=== PATIENT | female | born 1990 | race Hispanic/Latino ===

== ENCOUNTER 2018-12-15 06:05 | Day surgery (SDC) | payer BC ==
[2018-12-15 06:51] LABS: Basophils % (Auto) 0.7 % (0.0-1.8); Eosinophils # (Auto) 0.1 K/mm3 (0.0-0.4); Eosinophils % (Auto) 1.2 % (0.0-4.3); Hematocrit 42.3 % (30.3-42.9); Hemoglobin 14.7 gm/dl (10.1-14.3); Lymphocytes # (Auto) 2.2 K/mm3 (1.2-5.4); Lymphocytes % (Auto) 33.5 % (13.4-35.0); Mean Corpuscular HGB Conc 35 % (30-34); Mean Corpuscular Volume 89 fl (79-97); Monocytes # (Auto) 0.5 K/mm3 (0.0-0.8); Monocytes % (Auto) 7.2 % (0.0-7.3); Platelet Count 237 K/mm3 (140-440); Red Blood Count 4.74 M/mm3 (3.65-5.03); Red Cell Distribution Width 12.9 % (13.2-15.2)
[2018-12-15] MEDS ORDERED: NACL 0.9% 500 ML 500 ML IV SCH (07:00)
[2018-12-15 07:03] LABS: BUN/Creatinine Ratio 13; Blood Urea Nitrogen 9 mg/dL (7-17); Calcium 9.1 mg/dL (8.4-10.2); Hemolysis Index 12
[2018-12-15 07:04] LABS: INR 0.88 (0.87-1.13)
[2018-12-15 07:05] LABS: Partial Thromboplastin Time 27.7 Sec. (24.2-36.6)
[2018-12-15] MEDS ORDERED: HEPARIN/NS 5000 UNIT/500ML(CATH LAB) 500 ML IR ONE (08:18)
--- NOTE | 2018-12-15 08:22 | Short Stay Summary ---
Short Stay Documentation Date of service: 12/15/18 - History Principal diagnosis: Venous compression Past Medical History: other (venous hyupertension, BLE swelling and pain) Social history: no significant social history - Allergies and Medications Current Medications: Allergies No Known Allergies Allergy (Unverified 12/15/18 06:05) Home Medications Medication Instructions Recorded Confirmed Last Taken Type ALPRAZolam [Xanax TAB] 0.5 mg PO QHS 12/15/18 12/15/18 12/13/18 History Buspirone HCl [busPIRone] 7.5 mg PO BID 12/15/18 12/15/18 12/13/18 History Active Medications Sodium Chloride (Nacl 0.9% 500 Ml) 500 mls @ 50 mls/hr IV DIRECT MARGOT - Physical exam General appearance: no acute distress Integumentary: no rash, no growths HEENT: Atraumatic Lungs: Normal air movement Breasts: deferred Heart: Regular rate Gastrointestinal: normal Female Genitourinary: deferred Rectal Exam: deferred Extremities: no ischemia Neurological: Normal gait, Normal speech - Brief post op/procedure progress note Date of procedure: 12/15/18 Pre-op diagnosis: venous compression Post-op diagnosis: same Procedure: BLE venogram, IVUS, vwenoplasty and stent placement Anesthesia: local Surgeon: TARA KEENAN Estimated blood loss: minimal Pathology: none Condition: stable - Disposition Condition at discharge: Good Disposition: [id number] TO HOME OR SELFCARE Short Stay Discharge Plan Activity: advance as tolerated Weight Bearing Status: Weight Bear as Tolerated Diet: regular Wound: keep clean and dry, per your surgeon's advice Follow up with: SILAS BLOUNT PA-C [Other] - 7 Days
[2018-12-15] MEDS: SUBLIMAZE ONE ×3 (08:42→09:07)
[2018-12-15] MEDS: VERSED ONE ×2 (08:42→08:46)
[2018-12-15] MEDS: XYLOCAINE 2% INFILTRATI ONE ×2 (08:47→08:49)
[2018-12-15] MEDS ORDERED: TORADOL ONE (08:56)
--- NOTE | 2018-12-15 09:18 | Operative Report ---
Operative Report Operative Report: Exam: Bilateral lower extremity venogram, intravascular ultrasound, venoplasty with stent placement Clinical indication: Patient with a history of venous compression and venous hypertension with bilateral lower extremity swelling and burning pain Date: 12/15/2018 Procedure: Following an explanation of the risks, benefits and alternatives; written informed consent was obtained. The patient was brought to the angiographic suite and placed in supine position on the examination table. Initial ultrasound evaluation of her legs demonstrated patent proximal greater saphenous veins. The saphenous veins below the inferior epigastric veins of been ablated. The patient's bilateral groins were prepped and draped in the usual sterile fashion. 1% lidocaine was used for anesthesia. Under ultrasound guidance, the right proximal more greater saphenous vein was cannulated with a 7 cm 18-gauge needle. A 0.035 guidewire was advanced centrally. The needle was removed and a 5 Yoruba sheath placed. Access to the proximal left greater saphenous vein was obtained in a similar fashion and an additional 5 colombian sheath placed. Contrast was injected through both sheaths. This demonstrates significant extrinsic compression of the left common iliac vein just distal to its origin. There is significant prestenotic dilitations proximally demonstrated on venography. The sheaths were upsized over the guidewires to 10-Yoruba sheaths. Intravascular ultrasound was then performed first through the right sheath than through the left sheath. Image the vessels including the IVC, right common iliac vein, right external iliac vein, right common femoral vein, left common iliac vein, left external iliac vein and left common femoral vein. The right common iliac vein, right external iliac vein and right common femoral vein are patent. No significant extrinsic compression is identified. There is an 83% stenosis involving the proximal left common iliac vein with prestenotic dilatation. The left external iliac vein and left common femoral vein are patent. A 16 mm x 160 mm Venovo stent was advanced and deployed to extend from the bifurcation. The stent was then seated using a 14 mm balloon. Post stent placement imaging demonstrated brisk flow throughout the pelvis with residual less than 10% stenosis. The guidewires and she swerved removed and hemostasis achieved using manual compression. Compression dressings were then applied. The patient tolerated the procedure well. There were no immediate post procedure complications. Conscious sedation was performed under the guidance of radiologic nursing. Continuous cardiopulmonary monitoring was utilized. Impression: 1) Bilateral lower extremity venogram demonstrating significant compression of the left common iliac vein. 2) Intravascular ultrasound of the IVC, bilateral common iliac veins, bilateral external iliac veins in bilateral c ommon femoral veins demonstrating an 83% stenosis involving the proximal left common iliac vein with prestenotic dilatation. 3) Treatment of this lesion with a stent and venoplasty as described with residual less than 10% stenosis.
[2018-12-15] MEDS ORDERED: PERCOCET 5/325 PO ONE ×2 (10:14→10:15)
[2018-12-15 11:26] VITALS: BP 126/70
== END 2018-12-15 11:47 | disposition home or self-care (01) ==
LOC: CATHLABREC 06:05
PROVIDERS: ATTEND Radiology Diagnostic Radiology
DX: I87.1 Compression of vein (principal); I87.303 Chronic venous hypertension (idiopathic) without complications of bilateral lower extremity; J45.909 Unspecified asthma, uncomplicated; F32.9 Major depressive disorder, single episode, unspecified; F41.9 Anxiety disorder, unspecified; Z90.49 Acquired absence of other specified parts of digestive tract; Z98.890 Other specified postprocedural states; Z79.899 Other long term (current) drug therapy; Z79.01 Long term (current) use of anticoagulants
CPT/HCPCS: 36415; 37238; 37252; 75822; 80048; 85025; 85610; 85730; 99156; 99157; C1725; C1753; C1769; C1894; J1644; J1885; J2250; J3010; J7040; Q9967